=== PATIENT | male | born 1995 | race Caucasian/White ===

== ENCOUNTER → 2018-07-27 | Outpatient (CLI) | payer BC ==
--- NOTE | 2018-07-27 17:12 | Diagnostic Imaging Report ---
PATIENT HISTORY: TESTICULAR CYST, LEFT GROIN PAIN. TECHNIQUE: High-resolution grayscale, color Doppler and spectral Doppler ultrasound is performed of the scrotum and testicles. COMPARISON: None. FINDINGS: The right testicle measures 5.4 x 2.9 x 3.3 cm in size. Echogenicity appears normal. No masses are seen. Vascularity is normal. No hydrocele seen. The left testicle measures 5.0 x 2.2 x 3.1 cm. No masses are seen. Vascularity and echogenicity are normal. There is a circumscribed simple appearing cystic structure superior to the left testicle measuring 2.4 x 1.4 x 2.6 cm. The epididymis appears normal bilaterally. IMPRESSION: 1. Simple appearing cyst superior to the left testicle measuring up to 2.6 cm in diameter. No evidence of torsion. Dictated by: Dictated on workstation # [id number]
== END ==
LOC: RAD 16:07
PROVIDERS: ATTEND Surgery
DX: N44.2 Benign cyst of testis (principal)
CPT/HCPCS: 76870

== ENCOUNTER 2019-08-13 16:13 | Emergency (ER) | payer BC ==
[~2019-08-13] VITALS: Ht 185.4 cm; Wt 81.6 kg
[2019-08-13] MEDS ORDERED: ALPRAZolam 0.25 MG (XANAX) TAB PO ONE (17:15)
--- NOTE | 2019-08-13 17:18 | ED Neurological Problem ---
General Chief Complaint: Psych/Social Disorder Stated Complaint: "TOOK DAB OF WAX"/ANXIETY/NAUSEA Nursing Triage Note: PATIENT STATES TOOK A "DAB" STATES FEEL ANXIOUS, STATES NAUSEATED, SOB. Nursing Sepsis Screen: No Definite Risk Source: patient Exam Limitations: no limitations History of Present Illness Date Seen by Provider: Aug 13, 2019 Time Seen by Provider: 17:14 Initial Comments To ER per private vehicle with reports of anxiety and nausea. This began last night after he took an "dab of wax" which is apparently very potent marijuana co ncentrate and according to his friend at the bedside "not something for beginners" Timing/Duration: 24 hours Severity: moderate Associated Symptoms: other (anxiety) Allergies and Home Medications Allergies Coded Allergies: No Known Drug Allergies (Unverified , 08/13/19) Patient Home Medication List Home Medication List Reviewed: Yes Review of Systems Review of Systems Constitutional: see HPI Eyes: No Symptoms Reported Ears, Nose, Mouth, Throat: no symptoms reported Cardiovascular: no symptoms reported Genitourinary: no symptoms reported Musculoskeletal: no symptoms reported Skin: no symptoms reported Psychiatric/Neurological: See HPI, Anxiety Endocrine: No Symptoms Reported Past Vrvsszc-Jbudqr-Tuzixt Hx Patient Social History Recent Foreign Travel: No Contact w/Someone Who Travel: No Recent Infectious Disease Expo: No Physical Exam Vital Signs Vital Signs - First Documented 08/13/19 16:48 Temp 36.5 Pulse 85 Resp 16 B/P (MAP) 135/72 (93) Pulse Ox 100 O2 Delivery Room Air Capillary Refill : Less Than 3 Seconds Height, Weight, BMI Height: '" Weight: lbs. oz. kg; 23.00 BMI Method: General Appearance: WD/WN, no apparent distress, other (he is alert and oriented, without distress or tachypnea. Lungs are clear to auscultation with good air movement. Vitals are stable.) HEENT: PERRL/EOMI, normal ENT inspection Respiratory: no respiratory distress, no accessory muscle use Gastrointestinal: normal bowel sounds, non tender, soft Neurologic/Psychiatric: alert, normal mood/affect, oriented x 3 Cra[place] Nerves: normal hearing, normal speech, PERRL Skin: normal color, warm/dry Progress/Results/Core Measures Results/Orders My Orders Orders - CONOR LEACH APRN Alprazolam Tablet (Xanax Tablet) (08/13/19 17:15) Medications Given in ED Current Medications Medications Dose Ordered Sig/Hermelinda Route Start Time Stop Time Status Last Admin Dose Admin Alprazolam 0.5 mg ONCE ONCE PO 08/13/19 17:15 08/13/19 17:16 DC 08/13/19 17:09 0.5 MG Vital Signs/I&O 08/13/19 16:48 Temp 36.5 Pulse 85 Resp 16 B/P (MAP) 135/72 (93) Pulse Ox 100 O2 Delivery Room Air Blood Pressure Mean: 93 Departure Communication (Admissions) 1721-states he would like to leave now, feeling anxious. Impression Primary Impression: Anxiety Disposition: HOME, SELF-CARE Condition: Stable Departure-Patient Inst. Decision time for Depature: 17:22 Referrals: NO,LOCAL PHYSICIAN (PCP/Family) Primary Care Physician Patient Instructions: Panic Disorder (DC) Add. Discharge Instructions: Call [facility] tomorrow to make an appointment to be seen for follow- up. He may need some medication daily or at least as needed to help control your anxiety. Return to ER for any worsening. Avoid any additional marijuana use All discharge instructions reviewed with patient and/or family. Voiced understanding. CONOR LEACH APRN Aug 13, 2019 17:18
[2019-08-13] MEDS ORDERED: RX-LORAZEPAM (ATIVAN) 0.5 MG TAB PPK#4 PO ONE (17:25)
[2019-08-13 17:32] VITALS: BP 135/72
[2019-08-13] MEDS ORDERED: RX-LORAZEPAM (ATIVAN) 0.5 MG TAB PPK#4 PO STA (17:35)
== END 2019-08-13 17:35 | disposition home or self-care (01) ==
LOC: EDUNIT# 16:13 → ER 16:14
DX: F41.9 Anxiety disorder, unspecified (principal)
CPT/HCPCS: 99283

== ENCOUNTER 2019-08-15 17:13 | Emergency (ER) | payer BC, OTHER ==
[~2019-08-15] VITALS: Ht 187.9 cm; Wt 83.6 kg
--- NOTE | 2019-08-15 17:33 | ED Psychosocial ---
General Chief Complaint: Psych/Social Disorder Stated Complaint: ANXIETY,NAUSEA Source: patient Exam Limitations: no limitations History of Present Illness Date Seen by Provider: Aug 15, 2019 Time Seen by Provider: 17:33 Initial Comments To ER with recurrent anxiety manifested by nausea and cold chills and sweats. He was seen here in the emergency room a few days ago with severe anxiety after smoking and "dab of wax". This was in reference to marijuana concentrate that was heated and then smoked. He's been anxious his whole life smoking marijuana to control it since about the age of 16. I gave him a Xanax here and a take home pack of Ativan. He felt much better that evening. He followed up with [facility] student health Dr. Wagner who gave Ativan twice daily as needed. He then went back today she gave a prescription for Lexapro. A few hours after taking his first Lexapro pill he had cold chills. He states that he feels fine and back to normal now, more relaxed and otherwise not ill. He states his mom wanted him to come to the emergency room to be checked for sickness.He had labs drawn at [facility] yesterday. Timing/Duration: constant Severity: moderate Associated Symptoms: anxiety, insomnia Allergies and Home Medications Allergies Coded Allergies: No Known Drug Allergies (Unverified , 08/13/19) Patient Home Medication List Home Medication List Reviewed: Yes Review of Systems Constitutional: see HPI EENTM: see HPI Respiratory: no symptoms reported Cardiovascular: no symptoms reported Genitourinary: no symptoms reported Musculoskeletal: no symptoms reported Skin: no symptoms reported Psychiatric/Neurological: See HPI, Anxiety Past Gbrfhjx-Aafhbw-Bnoxws Hx Patient Social History Recent Foreign Travel: No Contact w/Someone Who Travel: No Physical Exam Vital Signs - First Documented 08/15/19 17:32 Temp 36.4 Pulse 66 Resp 18 B/P (MAP) 137/87 (104) Pulse Ox 98 Capillary Refill : Height, Weight, BMI Height: '" Weight: lbs. oz. kg; 23.00 BMI Method: General Appearance: WD/WN, no apparent distress HEENT: PERRL/EOMI, normal ENT inspection, TMs normal Neck: non-tender, full range of motion Respiratory: no respiratory distress, no accessory muscle use Gastrointestinal: normal bowel sounds, non tender Neurologic/Psychiatric: alert, normal mood/affect, oriented x 3 Appearance/Memory: appropriate appearance, appropriate insight, neat Behavior/Eye Contact: cooperative, good eye contact Thoughts/Hallucinations: normal thought pattern, no apparent hallucination Skin: normal color, warm/dry Progress/Results/Core Measures Results/Orders My Orders Orders - CONOR LEACH APRN Ua Culture If Indicated (08/15/19 17:40) Drug Screen Stat (Urine) (08/15/19 17:40) Cbc With Automated Diff (08/15/19 17:40) Basic Metabolic Panel (08/15/19 17:40) Thyroid Stimulating Hormone (08/15/19 17:40) Free T4 (Free Thyroxine) (08/15/19 17:40) Ed Iv/Invasive Line Start (08/15/19 17:40) Lorazepam Injection (Ativan Injection) (08/15/19 17:45) Vital Signs/I&O 08/15/19 17:32 Temp 36.4 Pulse 66 Resp 18 B/P (MAP) 137/87 (104) Pulse Ox 98 Departure Impression Primary Impression: Anxiety Disposition: 01 HOME, SELF-CARE Condition: Stable Departure-Patient Inst. Decision time for Depature: 18:02 Referrals: NO,LOCAL PHYSICIAN (PCP) Primary Care Physician Patient Instructions: Anxiety, Adult (DC) Add. Discharge Instructions: 1. Youre on the right dosages of the right medications. These will help her symptoms. The escitalopram unfortunately takes a few weeks to reach maximum effectiveness. During that timeframe you may notice side effects like headache nausea insomnia dry mouth and a variety of other symptoms. The side effects should diminish as the medication is continued. The lorazepam in the [place] bottle helps to control your anxiety symptoms, bridging the gap between now and a few weeks from now when the escitalopram becomes maximally effective. All discharge instructions reviewed with patient and/or family. Voiced understanding. Work/School Note: Work Release Form Date Seen in the Emergency Department: Aug 15, 2019 Return to Work: Aug 16, 2019 Copy Copies To 1: MORTEZA WAGNER MD, PETER J APRN Aug 15, 2019 17:33
[2019-08-15] MEDS ORDERED: LORazepam INJ 2 MG/ML (ATIVAN) VIAL IVP PRN (17:45)
[2019-08-15 18:13] VITALS: BP 137/87
[2019-08-15] MEDS ORDERED: RX-ONDANSETRON 4 MG ODT (ZOFRAN) PPK #4 ONE (18:20)
== END 2019-08-15 18:28 | disposition home or self-care (01) ==
LOC: EDUNIT# 17:13 → ER 17:14
DX: F41.9 Anxiety disorder, unspecified (principal)
CPT/HCPCS: 99283